=== PATIENT | female | born 1990 | race Caucasian/White ===

== ENCOUNTER 2018-06-09 07:39 | Emergency (ER) | payer OTHER ==
[2018-06-09 07:52] VITALS: BP 109/76; PULSE 74; TEMP 97.5; BMI 15.7
--- NOTE | 2018-06-09 07:59 | PDOC ---
History of Present Illness - General Chief Complaint: Eye Problem Stated Complaint: RIGHT EYE IRRITATION Time Seen by Provider: 06/09/18 07:45 History Source: Patient Exam Limitations: No Limitations - History of Present Illness Initial Comments: 27 yo F history episcleritis (diagnosed after her , currently nursing an 11 month old) presents with R eye redness and pain consistent with prior flares of episcleritis. She was told by her sweat box attendant that it is likely related to the prior . She has been avoiding steroids as she is still breast-feeding. She previously used ketorolac drops that helped her symptoms, but recently moved to the area and accidentally left them in her old apartment. Past History - Past Medical History Allergies/Adverse Reactions: Allergies Allergy/AdvReac Type Severity Reaction Status Date / Time Penicillins Allergy Intermediate Verified 06/09/18 07:41 Home Medications: Ambulatory Orders Ketorolac Tromethamine [Acular] 1 drop OP QID PRN #10 ml 06/09/18 COPD: No Other medical history: EYE PROBLEM - Suicide/Smoking/Psychosocial Hx Smoking History: Never smoked Have you smoked in the past 12 months: No Information on smoking cessation initiated: No Hx Alcohol Use: Yes (SOCIAL) Drug/Substance Use Hx: No Substance Use Type: Alcohol Review of Systems - Review of Systems Able to Perform ROS?: Yes Comments:: GENERAL/CONSTITUTIONAL: No fever or chills. No weakness. HEAD, EYES, EARS, NOSE AND THROAT: No change in vision. No ear pain or discharge. No sore throat. +R eye redness and pain. CARDIOVASCULAR: No chest pain or shortness of breath. RESPIRATORY: No cough, wheezing, or hemoptysis. GASTROINTESTINAL: No nausea, vomiting, diarrhea or constipation. GENITOURINARY: No dysuria, frequency, or change in urination. MUSCULOSKELETAL: No joint or muscle swelling or pain. No neck or back pain. SKIN: No rash NEUROLOGIC: No headache, vertigo, loss of consciousness, or change in strength/ sensation. ENDOCRINE: No increased thirst. No abnormal weight change. HEMATOLOGIC/LYMPHATIC: No anemia, easy bleeding, or history of blood clots. ALLERGIC/IMMUNOLOGIC: No hives or skin allergy. *Physical Exam - Vital Signs Last Vital Signs Temp Pulse Resp BP Pulse Ox 97.5 F L 74 16 109/76 06/09/18 07:40 06/09/18 07:40 06/09/18 07:40 06/09/18 07:40 - Physical Exam Comments: GENERAL: Awake, alert, and fully oriented, in no acute distress HEAD: No signs of trauma EYES: R conjunctiva injected. +R photophobia. PERRLA, EOMI, sclera anicteric. L conjunctiva clear ENT: Auricles normal inspection, hearing grossly normal, nares patent, oropharynx clear without exudates. Moist mucosa NECK: Normal ROM, supple, no lymphadenopathy, JVD, or masses EXTREMITIES: Normal range of motion, no edema. No clubbing or cyanosis. No cords, erythema, or tenderness NEUROLOGICAL: Cranial nerves II through XII grossly intact. Normal speech, normal gait SKIN: Warm, Dry, normal turgor, no rashes or lesions noted. Medical Decision Making - Medical Decision Making Refill of ketorolac drops sent to local pharmacy. Stable for DC home. *DC/Admit/Observation/Transfer Diagnosis at time of Disposition: Episcleritis Qualifiers: Laterality: right Qualified Code(s): H15.101 - Unspecified episcleritis, right eye - Discharge Dispostion Disposition: HOME Condition at time of disposition: Stable Decision to Admit order: No - Prescriptions Prescriptions: Ketorolac Tromethamine [Acular] 1 drop OP QID PRN #10 ml PRN Reason: Pain - Referrals - Patient Instructions Printed Discharge Instructions: DI for Eye Pain - Post Discharge Activity
== END 2018-06-09 08:19 | disposition home or self-care (01) ==
LOC: FER 07:39
DX: H15.101 Unspecified episcleritis, right eye (principal)
CPT/HCPCS: 99281-25